=== PATIENT | female | born 1930 | race African-American/Black ===

== ENCOUNTER 2016-02-28 05:27 | Inpatient (IN) | payer MEDICARE ==
[~2016-02-28] VITALS: Ht 152.4 cm; Wt 50.0 kg
--- NOTE | 2016-02-28 06:16 | EKG ---
[facility] [address] [place] [address] Test Date: 2016-02-28 Test Time: 05:46:06 Pat Name: JOSE JONAS Department: Room: Gender: F Bed Laster: : 1930 Requested By: Gina GONZALEZ Order Number: [id number] Reading MD: Chris Bell Measurements Intervals [place] Rate: 90 P: 47 NV: 190 QRS: -16 QRSD: 76 T: 20 QT: 324 QTc: 400 Interpretive Statements SINUS RHYTHM VENTRICULAR PREMATURE COMPLEX(ES) LEFT ATRIAL ABNORMALITY LEFTWARD AXIS Electronically Signed On 02-29-2016 15:31:49 ELECTROMECHANICAL ASSEMBLY TECHNICIAN by Chris Bell
--- NOTE | 2016-02-28 06:35 | PHYS DOC ---
Adult General Chief Complaint Chief Complaint: WEAKNESS/GENERALIZED HPI HPI Patient is a 85 year old female who presents with complaint of right-sided weakness. Patient states that her symptoms started yesterday morning. Patient states that she is having difficulty lifting her right foot secondary to weakness. The patient is accompanied by her niece who states that the patient seems to been having trouble walking over the past 2 months but it seemed to have gotten much worse over the past 24 hours. The niece states that the patient was definitely struggling with walking yesterday and did require full assistance with ambulation. The patient denies any pain currently. Patient has not had any fevers. No reported falls or injuries. The patient states that she has a tremor in her right upper extremity which has been present for several months. Patient also Dr. Cunha for primary care. Due to significant decrease in functional status over the past 2 days, the niece brought the patient to the emergency department for evaluation. Review of Systems Review of Systems Constitutional: Denies fever or chills [] Eyes: Denies change in visual acuity, redness, or eye pain [] HENT: Denies nasal congestion or sore throat [] Respiratory: Denies cough or shortness of breath [] Cardiovascular: Denies chest pain or edema [] GI: Denies abdominal pain, nausea, vomiting, bloody stools or diarrhea [] : Denies dysuria or hematuria [] Musculoskeletal: Denies back pain or joint pain [] Integument: Denies rash or skin lesions [] Neurologic: Right lower show any weakness, right upper extremity tremors [] Endocrine: Denies polyuria or polydipsia [] Physical Exam Physical Exam Constitutional: Alert, afebrile, no acute distress. [] HENT: Normocephalic, atraumatic, bilateral external ears normal, oropharynx moist, no oral exudates, nose normal. [] Eyes: PERRLA, EOMI, conjunctiva normal, no discharge. [] Neck: Normal range of motion, no tenderness, supple, no stridor. [] Cardiovascular:Heart rate regular rhythm, no murmur [] Lungs & Thorax: Bilateral breath sounds clear to auscultation [] Abdomen: Bowel sounds normal, soft, no tenderness, no masses, no pulsatile masses. [] Skin: Warm, dry, no erythema, no rash. [] Back: No tenderness, no CVA tenderness. [] Extremities: No tenderness, no cyanosis, no clubbing, ROM intact, no edema. [] Neurologic: Alert and oriented X 3, 4 out of 5 strength in right lower extremity , 5 out of 5 strength in left lower extremity, resting tremor and right upper extremity, normal sensation, unable to ambulate for gait testing. [] Current Patient Data Vital Signs Vital Signs Date Time Temp Pulse Resp B/P Pulse Ox O2 Delivery O2 Flow Rate FiO2 02/28/16 05:32 98.3 95 16 164/79 99 Room Air 98.3 EKG EKG Interpreted by me: Heart rate 90, sinus rhythm, leftward axis, normal intervals , no acute ST/T-wave abnormalities present [] Radiology/Procedures Radiology/Procedures [facility] [address] [place] [address] IMAGING REPORT Signed PATIENT: JOSE JONAS ACCOUNT: [id number] : 1930 LOCATION: [address] [place] [address] AGE: 85 SEX: F EXAM STATUS: ADM IN ORD. PHYSICIAN: MARCUS RAHMAN MD REASON: right lower extremity weakness since yesterday PROCEDURE: HEAD WO CONTRAST EXAM: Head CT without contrast. HISTORY: Right lower extremity weakness. TECHNIQUE: Computed tomographic images of the head were obtained without contrast. COMPARISON: None. FINDINGS: There is no acute or subacute extra-axial or intraparenchymal hemorrhage. There is no mass effect or midline shift. There is no hydrocephalus. There are areas of decreased attenuation within the cerebral white matter, nonspecific and likely related to chronic small vessel disease. There is mild cerebral volume loss with compensatory enlargement of the ventricles. There are punctate basal ganglia calcifications. The visualized portions of the orbits, paranasal sinuses and mastoid air cells are unremarkable. No suspicious calvarial lesion is seen. IMPRESSION: 1. No acute intracranial finding. 2. Scattered areas of hypodensity within the cerebral white matter, a nonspecific finding likely due to chronic small vessel disease. 3. Note is made that MRI is more sensitive for acute infarction. PQRS Compliance Statement: One or more of the following individualized dose reduction techniques were utilized for this examination: 1. Automated exposure control 2. Adjustment of the mA and/or kV according to patient size 3. Use of iterative reconstruction technique DICTATED and SIGNED BY: PHUONG SCHAFFER MD DATE: 02/28/16 0702 CC: MARCUS RAHMAN MD; EDGAR CUNHA MD ~ [] Course & Med Decision Making Course & Med Decision Making Pertinent Labs and Imaging studies reviewed. (See chart for details) Patient's workup revealed decreased potassium which was replaced orally in the emergency department. Etiology of patient's right-sided weakness unclear at this time. The patient will be admitted for further workup as patient is currently requiring full assistance and is unable to live independently at this time. I spoke with Dr. Gil who accepted care patient in hospital. Dragon Disclaimer Dragon Disclaimer This electronic medical record was generated, in whole or in part, using a voice recognition dictation system. Departure Departure Impression: Primary Impression: Right sided weakness Additional Impressions: Unable to ambulate Hypokalemia Disposition: ADMITTED INPATIENT Admitting Physician: Maciej Gil Condition: STABLE Referrals: EDGAR CUNHA MD (PCP) Problem Qualifiers MARCUS RAHMAN MD Feb 28, 2016 06:35
--- NOTE | 2016-02-28 07:09 | RAD ---
EXAM: Head CT without contrast. HISTORY: Right lower extremity weakness. TECHNIQUE: Computed tomographic images of the head were obtained without contrast. COMPARISON: None. FINDINGS: There is no acute or subacute extra-axial or intraparenchymal hemorrhage. There is no mass effect or midline shift. There is no hydrocephalus. There are areas of decreased attenuation within the cerebral white matter, nonspecific and likely related to chronic small vessel disease. There is mild cerebral volume loss with compensatory enlargement of the ventricles. There are punctate basal ganglia calcifications. The visualized portions of the orbits, paranasal sinuses and mastoid air cells are unremarkable. No suspicious calvarial lesion is seen. IMPRESSION: 1. No acute intracranial finding. 2. Scattered areas of hypodensity within the cerebral white matter, a nonspecific finding likely due to chronic small vessel disease. 3. Note is made that MRI is more sensitive for acute infarction. PQRS Compliance Statement: One or more of the following individualized dose reduction techniques were utilized for this examination: 1. Automated exposure control 2. Adjustment of the mA and/or kV according to patient size 3. Use of iterative reconstruction technique
[2016-02-28 07:12] LABS: BASO % 1 % (0-3); EOS % 1 % (0-3); HEMATOCRIT 41.2 % (36.0-47.0); HEMOGLOBIN 13.5 g/dL (12.0-15.5); LYMPH # 0.6 x10^3/uL (1.0-4.8); LYMPH % 13 % (24-48); MEAN CORPUSCULAR HEMOGLOBIN 27 pg (25-35); MEAN CORPUSCULAR HGB CONC 33 g/dL (31-37); MEAN CORPUSCULAR VOLUME 83 fL (79-100); MONO % 8 % (0-9); NEUT % 78 % (31-73); PLATELET COUNT 281 x10^3/uL (140-400); RED BLOOD COUNT 4.95 x10^6/uL (3.50-5.40); RED CELL DISTRIBUTION WIDTH 15.2 % (11.5-14.5); WHITE BLOOD COUNT 4.8 x10^3/uL (4.0-11.0)
[2016-02-28 07:14] LABS: CALCIUM 8.9 mg/dL (8.5-10.1); CREATININE 0.7 mg/dL (0.6-1.0)
[2016-02-28] MEDS ORDERED: ONDANSETRON PF 4 MG/2 ML VIAL. IV PRN ×2 (07:15→09:00)
[2016-02-28] MEDS ORDERED: ACETAMINOPHEN 325 MG TABLET. PO PRN ×2 (07:15→09:00)
[2016-02-28 07:17] LABS: POTASSIUM 2.9 mmol/L (3.5-5.1)
[2016-02-28 07:18] LABS: ALBUMIN 3.4 g/dL (3.4-5.0); DIRECT BILIRUBIN 0.2 mg/dL (0.0-0.2); TOTAL PROTEIN 6.3 g/dL (6.4-8.2)
[2016-02-28] MEDS ORDERED: POTASSIUM CHLORIDE 20 MEQ TABLET.ER. PO ONE (07:30)
[2016-02-28 07:41] LABS: BILIRUBIN,URINE NEGATIVE (NEG); GLUCOSE,URINE NEGATIVE (NEG); NITRITE,URINE NEGATIVE (NEG); PH,URINE 7.5; PROTEIN,URINE NEGATIVE (NEG-TRACE)
[2016-02-28] MEDS: IV NORMAL SALINE 1000ML BAG 1,000 ML IV SCH ×4 (07:41→20:45)
[2016-02-28 07:49] LABS: BACTERIA,URINE FEW /HPF (0-FEW); RBC,URINE 0 /HPF (0-2); WBC,URINE OCC /HPF (0-4)
[2016-02-28] MEDS ORDERED: ACETAMINOPHEN 650 MG SUPP.RECT. PR PRN (09:00)
[2016-02-28] MEDS ORDERED: 0.9 % SODIUM CHLORIDE 10 ML DISP.SYRIN. IV PRN (09:00)
[2016-02-28] MEDS ORDERED: LABETALOL 20 MG/4 ML DISP.SYRIN. IV PRN (09:00)
[2016-02-28 09:03] VITALS: BP 142/76
[2016-02-28 09:04] VITALS: BP 142/76
--- NOTE | 2016-02-28 09:51 | RAD ---
EXAM: Carotid Doppler sonogram. HISTORY: Stroke. TECHNIQUE: Doppler sonographic evaluation of the neck was performed and static images are submitted for review. FINDINGS: There is mild atherosclerotic plaque within the carotid bifurcations. The peak systolic velocity within the right common carotid artery is 98 cm/sec. The peak systolic velocities within the right proximal, mid and distal internal carotid artery are 77 cm/sec, 52 cm/sec, and 59 cm/sec, respectively. The peak systolic velocity within the left common carotid artery is 101 cm/sec. The peak systolic velocities within the left proximal, mid and distal internal carotid artery are 73 cm/sec, 81 cm/sec, and 65 cm/sec, respectively. There is normal antegrade flow within both vertebral arteries. IMPRESSION: No evidence of hemodynamically significant stenosis within the carotid or vertebral arteries. PQRS Statement: NASCET criteria were utilized for this exam.
[2016-02-28] MEDS: CYANOCOBALAMIN (VITAMIN B-12) 1,000 MCG/ML VIAL IM SCH (10:36)
[2016-02-28] MEDS: ASPIRIN ENTERIC COATED 325 MG TABLET.DR. PO SCH (10:36)
[2016-02-28] MEDS: ENOXAPARIN 40 MG/0.4 ML DISP.SYRIN. SQ SCH (10:36)
--- NOTE | 2016-02-28 11:37 | PDOC2 ---
NEUROLOGY CONSULT Date of Admission Date of Admission DATE: 02/28/16 TIME: 11:28 Reason for Consult Reason for Consult: Right-sided weakness Referring Physician Referring Physician: Dr. Gil PCP: Dr. Cunha Source Source: Caregiver, Chart review, Patient History of Present Illness History of Present Illness The patient is an 85-year-old right-handed female with the chief complaint of right-sided weakness. I saw her for the first and only time in my office on for dementia and hallucinations. I noted some mild tremor and entertained the possibility of Lewy body dementia. Laboratory studies were positive for a B12 level of 236 with normal folate, thyroid studies, sedimentation rate. The patient refused to have imaging of the brain. I do not think that she would benefit from Parkinson's medications but did prescribe donepezil. The patient was supposed to return for follow-up 3 days ago but did not do so. Apparently in the meantime she did develop some right-sided weakness, which grew worse in the past 48 hours. There is no prior history of stroke, seizure, or head injury. Past Medical History Cardiovascular: HTN CENTRAL NERVOUS SYSTEM: Dementia Past Surgical History Past Surgical History: No pertinent history Family History Family History: CVA Social History Social History , lives in a nursing home home, no alcohol or tobacco Current Medications Current Medications Current Medications Ondansetron HCl 4 mg 4 mg PRN Q8HRS PRN IV NAUSEA/VOMITING; Start 02/28/16 at 07 :15; Stop 02/29/16 at 07:14 Sodium Chloride (Iv Sodium Chloride 0.9% 1000ml Bag) 1,000 ml @ 100 mls/hr Q10H IV Last administered on 02/28/16 07:41; Start 02/28/16 at 07:08; Stop 02/28 at 07:07 Acetaminophen (Tylenol) 650 mg PRN Q4HRS PRN PO FEVER; Start 02/28/16 at 07:15; Stop 02/29/16 at 07:14 Potassium Chloride (Klor-Con) 40 meq 1X ONCE PO Last administered on 02/28/16 07:40; Start 02/28/16 at 07:30; Stop 02/28/16 at 07:37; Status DC Sodium Chloride 3 ml 3 ml QSHIFT PRN IV AFTER MEDS AND BLOOD DRAWS; Start at 09:00 Sodium Chloride (Iv Sodium Chloride 0.9% 1000ml Bag) 1,000 ml @ 100 mls/hr Q10H IV Last administered on 02/28/16 10:36; Start 02/28/16 at 08:57 Aspirin (Ecotrin) 325 mg DAILYWBKFT PO Last administered on 02/28/16 10:36; Start 02/28/16 at 10:00 Simvastatin (Zocor) 40 mg QHS PO ; Start 02/28/16 at 21:00 Labetalol HCl (Normodyne) 10 mg PRN Q10MIN PRN IV HYPERTENSION, SEE COMMENTS; Start 02/28/16 at 09:00 Acetaminophen (Tylenol) 650 mg PRN Q6HRS PRN PO FEVER; Start 02/28/16 at 09:00 Acetaminophen (Tylenol) 650 mg PRN Q6HRS PRN NV FEVER; Start 02/28/16 at 09:00 Ondansetron HCl (Zofran) 4 mg PRN Q6HRS PRN IV NAUSEA/VOMITING; Start 02/28/16 at 09:00 Enoxaparin Sodium (Lovenox 40mg Syringe) 40 mg Q24H SQ Last administered on 02/27 10:36; Start 02/28/16 at 10:00 Cyanocobalamin (Vitamin B-12) 1,000 mcg DAILY IM Last administered on 02/28/16 10:36; Start 02/28/16 at 10:00; Stop 03/01/16 at 09:59 Allergies Allergies: Coded Allergies: No Known Drug Allergies (Unverified , 02/28/16) ROS Review of System Negative for fevers, chills, weight loss, shortness of breath, chest pain, indigestion, hematochezia, melena, dysuria. Full 14-point review systems is negative. Physical Exam Physical Examination Vital signs: see above. General appearance is normal and in no acute distress. HEENT: Normocephalic and nontraumatic. Eyes, nose, ears, and throat are unremarkable. Neck is supple. No lymphadenopathy. No bruits are heard over the carotid artery. No crepitus. NEUROLOGICAL EXAMINATION: Mental Status Examination: Alert. Oriented only to person. Answers questions and follows commends. Pupils are equal round and reactive to light and accommodation. Funduscopic exam: No papilledema. Extraocular movements are intact. Visual field exam shows no defect on the direct confrontation. No motor or sensory deficits on the facial exam. Uvula in the midline and the soft palate elevated symmetrically. No deviation of the tongue to any direction. Gross hearing is normal. Shoulder shrug normal. Muscle tone is normal. Muscle strength is 4/5. Deep tendon reflexes are 1+ all around. Plantar reflex is with flexion response bilaterally. [id number] test performance is accurate. Alternative movements are accurate. Gait not tested. Sensory exam shows no deficits. No cerebellar signs are elicited. Vitals VITALS Vital Signs Date Time Temp Pulse Resp B/P Pulse Ox O2 Delivery O2 Flow Rate FiO2 02/28/16 10:50 Room Air 02/28/16 09:04 97.9 89 18 142/76 99 97.9 Labs Labs Laboratory Tests Test 02/28/16 06:39 02/28/16 06:48 White Blood Count 4.8x10^3/uL (4.0-11.0) Red Blood Count 4.95x10^6/uL (3.50-5.40) Hemoglobin 13.5g/dL (12.0-15.5) Hematocrit 41.2% (36.0-47.0) Mean Corpuscular Volume 83fL (79-100) Mean Corpuscular Hemoglobin 27pg (25-35) Mean Corpuscular Hemoglobin Concent 33g/dL (31-37) Red Cell Distribution Width 15.2% (11.5-14.5) Platelet Count 281x10^3/uL (140-400) Neutrophils (%) (Auto) 78% (31-73) Lymphocytes (%) (Auto) 13% (24-48) Monocytes (%) (Auto) 8% (0-9) Eosinophils (%) (Auto) 1% (0-3) Basophils (%) (Auto) 1% (0-3) Neutrophils # (Auto) 3.8x10^3uL (1.8-7.7) Lymphocytes # (Auto) 0.6x10^3/uL (1.0-4.8) Monocytes # (Auto) 0.4x10^3/uL (0.0-1.1) Eosinophils # (Auto) 0.0x10^3/uL (0.0-0.7) Basophils # (Auto) 0.0x10^3/uL (0.0-0.2) Sodium Level 145mmol/L (136-145) Potassium Level 2.9mmol/L (3.5-5.1) Chloride Level 105mmol/L (98-107) Carbon Dioxide Level 30mmol/L (21-32) Anion Gap 10 (6-14) Blood Urea Nitrogen 9mg/dL (7-20) Creatinine 0.7mg/dL (0.6-1.0) Estimated GFR (Cockcroft-Gault) 96.0 Glucose Level 89mg/dL (70-99) Calcium Level 8.9mg/dL (8.5-10.1) Total Bilirubin 1.0mg/dL (0.2-1.0) Direct Bilirubin 0.2mg/dL (0.0-0.2) Aspartate Amino Transf (AST/SGOT) 23U/L (15-37) Alanine Aminotransferase (ALT/SGPT) 17U/L (14-59) Alkaline Phosphatase 49U/L (46-116) Total Protein 6.3g/dL (6.4-8.2) Albumin 3.4g/dL (3.4-5.0) Urine Collection Type U cath Urine Color Yellow Urine Clarity Cloudy Urine pH 7.5 Urine Specific [place] 1.015 Urine Protein Negativemg/dL (NEG-TRACE) Urine Glucose (UA) Negativemg/dL (NEG) Urine Ketones (Stick) 15mg/dL (NEG) Urine Blood Negative (NEG) Urine Nitrite Negative (NEG) Urine Bilirubin Negative (NEG) Urine Urobilinogen Dipstick 4.0mg/dL (0.2 mg/dL) Urine Leukocyte Esterase Negative (NEG) Urine RBC 0/HPF (0-2) Urine WBC Occ/HPF (0-4) Urine Amorphous Sediment Present/HPF Urine Bacteria Few/HPF (0-FEW) Laboratory Tests Test 02/28/16 06:39 02/28/16 06:48 White Blood Count 4.8x10^3/uL (4.0-11.0) Red Blood Count 4.95x10^6/uL (3.50-5.40) Hemoglobin 13.5g/dL (12.0-15.5) Hematocrit 41.2% (36.0-47.0) Mean Corpuscular Volume 83fL (79-100) Mean Corpuscular Hemoglobin 27pg (25-35) Mean Corpuscular Hemoglobin Concent 33g/dL (31-37) Red Cell Distribution Width 15.2% (11.5-14.5) Platelet Count 281x10^3/uL (140-400) Neutrophils (%) (Auto) 78% (31-73) Lymphocytes (%) (Auto) 13% (24-48) Monocytes (%) (Auto) 8% (0-9) Eosinophils (%) (Auto) 1% (0-3) Basophils (%) (Auto) 1% (0-3) Neutrophils # (Auto) 3.8x10^3uL (1.8-7.7) Lymphocytes # (Auto) 0.6x10^3/uL (1.0-4.8) Monocytes # (Auto) 0.4x10^3/uL (0.0-1.1) Eosinophils # (Auto) 0.0x10^3/uL (0.0-0.7) Basophils # (Auto) 0.0x10^3/uL (0.0-0.2) Sodium Level 145mmol/L (136-145) Potassium Level 2.9mmol/L (3.5-5.1) Chloride Level 105mmol/L (98-107) Carbon Dioxide Level 30mmol/L (21-32) Anion Gap 10 (6-14) Blood Urea Nitrogen 9mg/dL (7-20) Creatinine 0.7mg/dL (0.6-1.0) Estimated GFR (Cockcroft-Gault) 96.0 Glucose Level 89mg/dL (70-99) Calcium Level 8.9mg/dL (8.5-10.1) Total Bilirubin 1.0mg/dL (0.2-1.0) Direct Bilirubin 0.2mg/dL (0.0-0.2) Aspartate Amino Transf (AST/SGOT) 23U/L (15-37) Alanine Aminotransferase (ALT/SGPT) 17U/L (14-59) Alkaline Phosphatase 49U/L (46-116) Total Protein 6.3g/dL (6.4-8.2) Albumin 3.4g/dL (3.4-5.0) Urine Collection Type U cath Urine Color Yellow Urine Clarity Cloudy Urine pH 7.5 Urine Specific [place] 1.015 Urine Protein Negativemg/dL (NEG-TRACE) Urine Glucose (UA) Negativemg/dL (NEG) Urine Ketones (Stick) 15mg/dL (NEG) Urine Blood Negative (NEG) Urine Nitrite Negative (NEG) Urine Bilirubin Negative (NEG) Urine Urobilinogen Dipstick 4.0mg/dL (0.2 mg/dL) Urine Leukocyte Esterase Negative (NEG) Urine RBC 0/HPF (0-2) Urine WBC Occ/HPF (0-4) Urine Amorphous Sediment Present/HPF Urine Bacteria Few/HPF (0-FEW) Images Images CT head: 1. No acute intracranial finding. 2. Scattered areas of hypodensity within the cerebral white matter, a nonspecific finding likely due to chronic small vessel disease. 3. Note is made that MRI is more sensitive for acute infarction. Carotids: negative Assessment/Plan Assessment/Plan Impression: Dementia, at my office I thought there could be Lewy body dementia, but I don't elicit Parkinsonian signs on today's examination. Possible stroke symptoms, not apparent on bedside examination. B12 deficiency Recommendations: Stroke workup, MRI and echocardiogram, carotid studies already done Rehabilitation modalities Aspirin Statin B-12 injections Resume donepezil I discussed my findings with the patient's niece. Thank you for letting me help with the patient's care. DEMETRIA RENDON MD Feb 28, 2016 11:37
[2016-02-28 11:55] VITALS: BP 134/80
[2016-02-28] MEDS: DONEPEZIL HCL 10 MG TABLET. PO SCH (12:21)
--- NOTE | 2016-02-28 14:34 | PDOC1 ---
History and Physical Date of Admission Date of Admission DATE: 02/28/16 TIME: 14:33 Identification/Chief Complaint Chief Complaint weakness Source Source: Caregiver, Chart review, Patient History of Present Illness History of Present Illness Ms. Puentes, is a 85 year old female admitted w. new right-sided weakness. 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 and new difficulty lifting her right foot secondary to weakness. RIght hand is markedly weak, she has just gotten back in bed, and didn't want to get MRI or PT due to her being tired. per her neice, Sx have worsened over 24 hours before presentation, and are now alittle improved Past Medical History Cardiovascular: HTN CENTRAL NERVOUS SYSTEM: Dementia Renal/: No pertinent hx Endocrine: No pertinent hx Past Surgical History Past Surgical History: No pertinent history Social History Smoke: No ALCOHOL: none Current Problem List Problem List Problems Medical Problems: (1) Hypokalemia Status: Acute (2) Right sided weakness Status: Acute (3) Unable to ambulate Status: Acute Problems: Current Medications Current Medications Current Medications Ondansetron HCl 4 mg 4 mg PRN Q8HRS PRN IV NAUSEA/VOMITING; Start 02/28/16 at 07 :15; Stop 02/29/16 at 07:14 Sodium Chloride (Iv Sodium Chloride 0.9% 1000ml Bag) 1,000 ml @ 100 mls/hr Q10H IV Last administered on 02/28/16 07:41; Start 02/28/16 at 07:08; Stop 02/28 at 07:07 Acetaminophen (Tylenol) 650 mg PRN Q4HRS PRN PO FEVER; Start 02/28/16 at 07:15; Stop 02/29/16 at 07:14 Potassium Chloride (Klor-Con) 40 meq 1X ONCE PO Last administered on 02/28/16 07:40; Start 02/28/16 at 07:30; Stop 02/28/16 at 07:37; Status DC Sodium Chloride 3 ml 3 ml QSHIFT PRN IV AFTER MEDS AND BLOOD DRAWS; Start at 09:00 Sodium Chloride (Iv Sodium Chloride 0.9% 1000ml Bag) 1,000 ml @ 100 mls/hr Q10H IV Last administered on 02/28/16 10:36; Start 02/28/16 at 08:57 Aspirin (Ecotrin) 325 mg DAILYWBKFT PO Last administered on 02/28/16 10:36; Start 02/28/16 at 10:00 Simvastatin (Zocor) 40 mg QHS PO ; Start 02/28/16 at 21:00 Labetalol HCl (Normodyne) 10 mg PRN Q10MIN PRN IV HYPERTENSION, SEE COMMENTS; Start 02/28/16 at 09:00 Acetaminophen (Tylenol) 650 mg PRN Q6HRS PRN PO FEVER; Start 02/28/16 at 09:00 Acetaminophen (Tylenol) [address] FEVER; Start 02/28/16 at 09:00 Ondansetron HCl (Zofran) 4 mg PRN Q6HRS PRN IV NAUSEA/VOMITING; Start 02/28/16 at 09:00 Enoxaparin Sodium (Lovenox 40mg Syringe) 40 mg Q24H SQ Last administered on 02/27 10:36; Start 02/28/16 at 10:00 Cyanocobalamin (Vitamin B-12) 1,000 mcg DAILY IM Last administered on 02/28/16 10:36; Start 02/28/16 at 10:00; Stop 03/01/16 at 09:59 Donepezil HCl (Aricept) 10 mg DAILY PO Last administered on 02/28/16 12:21; Start 02/28/16 at 12:00 Allergies Allergies: Coded Allergies: No Known Drug Allergies (Unverified , 02/28/16) ROS General: No: Appetite, Chills, Fatigue, Malaise, Night Sweats, Other PSYCHOLOGICAL ROS: YES: Disorientation, No: Anxiety, Behavioral Disorder, Concentration difficultie, Decreased libido , Depression, Hallucinations, Hostility, Irritablity, Memory difficulties, Mood Swings, Obsessive thoughts, Other, Physical abuse, Sexual abuse, Sleep disturbances, Suicidal ideation Eyes: No Blurry vision, No Decreased vision, No Double vision, No Dry eyes, No Excessive tearing, No Eye Pain, No Itchy Eyes, No Loss of vision, No Other, No Photophobia, No Scotomata, No Uses contacts, No Uses glasses HEENT: No: Epistaxis, Heacaches, Hearing change, Nasal congestion, Nasal discharge, Oral lesions, Other, Sinus pain, Sneezing, Snoring, Sore Throat, Tinnitus, Vertigo, Visual Changes, Vocal changes Cardiovascular: No Chest Pain, No Edema, No Lt Headedness, No Orthopnea, No Other, No Palpitations, No Paroxysmal Noc. Dyspnea Gastrointestinal: No Abdominal Pain, No Constipation, No Diarrhea, No Hematochezia, No Melena, No Nausea, No Other, No Vomiting Genitourinary: No , No , No , No , No , No , No , No Discharge, No Dysuria, No Flank Pain, No Frequency, No Hematuria, No Incontinence, No Other, No Pain, No Retention, No Urgency Musculoskeletal: Yes Joint Pain, Yes Joint Stiffness, No Gait Disturbance, No Joint Swelling, No Muscle Pain, No Muscular Weakness , No Other, No Pain In:, No Swelling In: Neurological: Yes Impaired Coord/balance, Yes Weakness, No Behavorial Changes, No Bowel/Bladder ControlChng, No Confusion, No Dizziness, No Gait Disturbance, No Headaches, No Memory Loss, No Numbness/ Tingling, No Other, No Seizures, No Speech Problems, No Tremors, No Visual Changes Skin: No Acne, No Dry Skin, No Eczema, No Hair Changes, No Lumps, No Mole Changes, No Mottling, No Nail Changes, No Other, No Pruritus, No Rash, No Skin Lesion Changes Physical Exam General: Alert, Cooperative, No acute distress, Other (poorly oriented) HEENT: PERRLA Lungs: Clear to auscultation, Normal air movement Heart: RRR, no murmurs Abdomen: Normal bowel sounds, Soft Rectal Exam: not examined Extremities: No cyanosis, No edema, Normal pulses Neuro: Normal tone, Sensation intact, Cranial nerves 3-12 NL, 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, 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 coordination finger to nose or alternating hand movement.) Psych/Mental Status: Mood NL Vitals Vitals Vital Signs Date Time Temp Pulse Resp B/P Pulse Ox O2 Delivery O2 Flow Rate FiO2 02/28/16 11:55 98.1 84 18 134/80 98 98.1 02/28/16 10:50 Room Air Labs Labs Laboratory Tests Test 02/28/16 06:39 02/28/16 06:48 White Blood Count 4.8x10^3/uL (4.0-11.0) Red Blood Count 4.95x10^6/uL (3.50-5.40) Hemoglobin 13.5g/dL (12.0-15.5) Hematocrit 41.2% (36.0-47.0) Mean Corpuscular Volume 83fL (79-100) Mean Corpuscular Hemoglobin 27pg (25-35) Mean Corpuscular Hemoglobin Concent 33g/dL (31-37) Red Cell Distribution Width 15.2% (11.5-14.5) Platelet Count 281x10^3/uL (140-400) Neutrophils (%) (Auto) 78% (31-73) Lymphocytes (%) (Auto) 13% (24-48) Monocytes (%) (Auto) 8% (0-9) Eosinophils (%) (Auto) 1% (0-3) Basophils (%) (Auto) 1% (0-3) Neutrophils # (Auto) 3.8x10^3uL (1.8-7.7) Lymphocytes # (Auto) 0.6x10^3/uL (1.0-4.8) Monocytes # (Auto) 0.4x10^3/uL (0.0-1.1) Eosinophils # (Auto) 0.0x10^3/uL (0.0-0.7) Basophils # (Auto) 0.0x10^3/uL (0.0-0.2) Sodium Level 145mmol/L (136-145) Potassium Level 2.9mmol/L (3.5-5.1) Chloride Level 105mmol/L (98-107) Carbon Dioxide Level 30mmol/L (21-32) Anion Gap 10 (6-14) Blood Urea Nitrogen 9mg/dL (7-20) Creatinine 0.7mg/dL (0.6-1.0) Estimated GFR (Cockcroft-Gault) 96.0 Glucose Level 89mg/dL (70-99) Calcium Level 8.9mg/dL (8.5-10.1) Total Bilirubin 1.0mg/dL (0.2-1.0) Direct Bilirubin 0.2mg/dL (0.0-0.2) Aspartate Amino Transf (AST/SGOT) 23U/L (15-37) Alanine Aminotransferase (ALT/SGPT) 17U/L (14-59) Alkaline Phosphatase 49U/L (46-116) Total Protein 6.3g/dL (6.4-8.2) Albumin 3.4g/dL (3.4-5.0) Urine Collection Type U cath Urine Color Yellow Urine Clarity Cloudy Urine pH 7.5 Urine Specific [place] 1.015 Urine Protein Negativemg/dL (NEG-TRACE) Urine Glucose (UA) Negativemg/dL (NEG) Urine Ketones (Stick) 15mg/dL (NEG) Urine Blood Negative (NEG) Urine Nitrite Negative (NEG) Urine Bilirubin Negative (NEG) Urine Urobilinogen Dipstick 4.0mg/dL (0.2 mg/dL) Urine Leukocyte Esterase Negative (NEG) Urine RBC 0/HPF (0-2) Urine WBC Occ/HPF (0-4) Urine Amorphous Sediment Present/HPF Urine Bacteria Few/HPF (0-FEW) Laboratory Tests Test 02/28/16 06:39 02/28/16 06:48 White Blood Count 4.8x10^3/uL (4.0-11.0) Red Blood Count 4.95x10^6/uL (3.50-5.40) Hemoglobin 13.5g/dL (12.0-15.5) Hematocrit 41.2% (36.0-47.0) Mean Corpuscular Volume 83fL (79-100) Mean Corpuscular Hemoglobin 27pg (25-35) Mean Corpuscular Hemoglobin Concent 33g/dL (31-37) Red Cell Distribution Width 15.2% (11.5-14.5) Platelet Count 281x10^3/uL (140-400) Neutrophils (%) (Auto) 78% (31-73) Lymphocytes (%) (Auto) 13% (24-48) Monocytes (%) (Auto) 8% (0-9) Eosinophils (%) (Auto) 1% (0-3) Basophils (%) (Auto) 1% (0-3) Neutrophils # (Auto) 3.8x10^3uL (1.8-7.7) Lymphocytes # (Auto) 0.6x10^3/uL (1.0-4.8) Monocytes # (Auto) 0.4x10^3/uL (0.0-1.1) Eosinophils # (Auto) 0.0x10^3/uL (0.0-0.7) Basophils # (Auto) 0.0x10^3/uL (0.0-0.2) Sodium Level 145mmol/L (136-145) Potassium Level 2.9mmol/L (3.5-5.1) Chloride Level 105mmol/L (98-107) Carbon Dioxide Level 30mmol/L (21-32) Anion Gap 10 (6-14) Blood Urea Nitrogen 9mg/dL (7-20) Creatinine 0.7mg/dL (0.6-1.0) Estimated GFR (Cockcroft-Gault) 96.0 Glucose Level 89mg/dL (70-99) Calcium Level 8.9mg/dL (8.5-10.1) Total Bilirubin 1.0mg/dL (0.2-1.0) Direct Bilirubin 0.2mg/dL (0.0-0.2) Aspartate Amino Transf (AST/SGOT) 23U/L (15-37) Alanine Aminotransferase (ALT/SGPT) 17U/L (14-59) Alkaline Phosphatase 49U/L (46-116) Total Protein 6.3g/dL (6.4-8.2) Albumin 3.4g/dL (3.4-5.0) Urine Collection Type U cath Urine Color Yellow Urine Clarity Cloudy Urine pH 7.5 Urine Specific [place] 1.015 Urine Protein Negativemg/dL (NEG-TRACE) Urine Glucose (UA) Negativemg/dL (NEG) Urine Ketones (Stick) 15mg/dL (NEG) Urine Blood Negative (NEG) Urine Nitrite Negative (NEG) Urine Bilirubin Negative (NEG) Urine Urobilinogen Dipstick 4.0mg/dL (0.2 mg/dL) Urine Leukocyte Esterase Negative (NEG) Urine RBC 0/HPF (0-2) Urine WBC Occ/HPF (0-4) Urine Amorphous Sediment Present/HPF Urine Bacteria Few/HPF (0-FEW) VTE Prophylaxis Ordered VTE Prophylaxis Devices: No VTE Pharmacological Prophylaxi: Yes Assessment/Plan Assessment/Plan right-sided weakness. essential tremor TIA seems likely dementia, possible Lewy-body discussed by Dr. Alaniz B12 deficiency TREY VERAS MD Feb 28, 2016 14:34
--- NOTE | 2016-02-28 16:59 | CARD ---
APPROVED REPORT EXAM: Two-dimensional and M-mode echocardiogram with Doppler and color Doppler. Other Information Quality : GoodHR: 82bpm Rhythm : NSR INDICATION CVA 2D DIMENSIONS RVDd1.7 (2.9-3.5cm)Left Atrium(2D)1.6 (1.6-4.0cm) IVSd0.7 (0.7-1.1cm)Aortic Root(2D)2.6 (2.0-3.7cm) LVDd4.1 (3.9-5.9cm)LVOT Diameter2.1 (1.8-2.4cm) PWd0.8 (0.7-1.1cm)LVDs2.5 (2.5-4.0cm) FS (%) 38.0 %SV50.2 ml LVEF(%)68.6 (>50%) Aortic Valve AoV Peak Abiel.107.7cm/sAoV VTI15.8cm AO Peak GR.4.6mmHgLVOT VTI 15.48cm AO Mean GR.2mmHg Mitral Valve MV E Vuhjwahb42.6cm/sMV E Peak Gr.5mmHg MV DECEL [id number] A Sygrplen61.7cm/s MV E Mean Gr.2mmHgE/A Ratio0.9 MV A [id number] TDI Lateral E' P. V6.89cm/sMedial E' P. V6.37cm/s E/Lateral E'10.7E/Medial E'11.6 Pulmonary Valve PV Peak Tczwcsjt48.0cm/s Pulmonary Vein S1 Velocity6.0cm/sS2 Lqmbembc88.78cm/s D2 Xetfbdnc02.8cm/sPVa [id number] LEFT VENTRICLE The left ventricle is normal size. There is normal left ventricular wall thickness. The left ventricu lar systolic function is normal. The Ejection Fraction is 60-65%. There is normal LV segmental wall m otion. Transmitral Doppler flow pattern is Grade I-abnormal relaxation pattern. RIGHT VENTRICLE The right ventricle is normal size. There is normal right ventricular wall thickness. The right ventr icular systolic function is normal. ATRIA The left atrium size is normal. The right atrium size is normal. The interatrial septum is intact wit h no evidence for an atrial septal defect or patent foramen ovale as noted on 2-D or Doppler imaging. AORTIC VALVE The aortic valve is calcified but opens well. The aortic valve is trileaflet. Doppler and Color Flow revealed no significant aortic regurgitation. There is no significant aortic valvular stenosis. MITRAL VALVE Mitral annular calcification is mild. There is no evidence of mitral valve prolapse. There is no mitr al valve stenosis. Doppler and Color Flow revealed mild mitral regurgitation. TRICUSPID VALVE The tricuspid valve is normal in structure and function. Doppler and Color Flow revealed no tricuspid valve regurgitation noted. There is no tricuspid valve stenosis. PULMONIC VALVE The pulmonary valve is normal in structure and function. Doppler and Color Flow revealed no pulmonic valvular regurgitation. There is no pulmonic valvular stenosis. GREAT VESSELS The aortic root is normal in size. The ascending aorta is normal in size. The pulmonary artery is nor mal. The IVC is normal in size and collapses >50% with inspiration. PERICARDIAL EFFUSION There is no evidence of significant pericardial effusion. Critical Notification Critical Value: No <Conclusion> The left ventricular systolic function is normal. The Ejection Fraction is 60-65%. There is normal LV segmental wall motion. Transmitral Doppler flow pattern is Grade I-abnormal relaxation pattern. Doppler and Color Flow revealed mild mitral regurgitation. There is no evidence of significant pericardial effusion.
[2016-02-28 19:00] VITALS: BP 139/82
[2016-02-28] MEDS: SIMVASTATIN 40 MG TABLET. PO SCH (20:40)
[2016-02-28 23:00] VITALS: BP 150/86
[2016-02-29 03:00] VITALS: BP 141/81
[2016-02-29] MEDS: IV NORMAL SALINE 1000ML BAG 1,000 ML IV SCH ×3 (03:26→14:57)
[2016-02-29 05:45] LABS: CHOLESTEROL/HDL RATIO 3.3
[2016-02-29 07:12] VITALS: BP 159/72
[2016-02-29] MEDS ORDERED: GADOBUTROL 7.5 MMOL/7.5 ML VIAL IV ONE (08:45)
[2016-02-29] MEDS: CYANOCOBALAMIN (VITAMIN B-12) 1,000 MCG/ML VIAL IM SCH (09:08)
[2016-02-29] MEDS: ASPIRIN ENTERIC COATED 325 MG TABLET.DR. PO SCH (09:08)
[2016-02-29] MEDS: DONEPEZIL HCL 10 MG TABLET. PO SCH (09:08)
[2016-02-29] MEDS: ENOXAPARIN 40 MG/0.4 ML DISP.SYRIN. SQ SCH (09:09)
--- NOTE | 2016-02-29 09:52 | RAD ---
PROCEDURE MRI brain without and with contrast. HISTORY Altered mental status, confusion, weakness TECHNIQUE Sagittal and axial T1, axial T2, axial diffusion, axial FLAIR, coronal T2, axial gradient echo T2, post-contrast sagittal, axial, coronal T1 weighted images were acquired of the brain. Contrast: 5 cc Gadavist. COMPARISON None other than CT head exam February 28, 2016 FINDINGS There is a fairly homogeneously enhancing mass of the right temporal region laterally, up to approximately 2.5 centimeters cc by 2.2 centimeters transverse by 3.1 centimeters AP. This is apparently extra-axial in location with extent to the dural surface. There is adjacent mild dural thickening and enhancement. There is no significant edema/gliosis of the adjacent right temporal parenchyma. There is no restricted diffusion suggestive of recent infarct or cytotoxic edema. Ventricular size is within normal limits. There is mild generalized supratentorial involutional change. There is very mild T2 and FLAIR hyperintense signal abnormality of the supratentorial periventricular white matter bilaterally. There is preservation of the major arterial intracranial flow voids at the skull base. Mastoid air cells are aerated. There is patchy minimal ethmoid air cell mucosal thickening. There is mild mucosal thickening near floors of the maxillary sinuses. Cerebellar tonsils are normal in location. There is preservation of marrow signal of the clivus. There is no significant abnormality of the pineal gland or pituitary gland. There is degenerative disc disease of visualized superior cervical spine. IMPRESSION 1. There is no evidence of recent infarct. 2. There is a fairly large enhancing mass in the right lateral temporal region, apparently extra-axial in location. Findings are most likely due to a meningioma unless clinical suspicion for dural-based metastasis. Close interval followup imaging may be beneficial. Minimal T2 and FLAIR hyperintense signal abnormality of the supratentorial white matter is probably due to chronic microvascular ischemic disease in patient this age. Electronically signed by: Danyel Blair MD (Feb 29, 2016 09:50:34)
[2016-02-29 11:02] VITALS: BP 131/70
--- NOTE | 2016-02-29 14:46 | PDOC ---
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 Most likely this gait disorder represents her dementia. I do not believe the temporal meningioma is at fault. B12 deficiency Plan I discussed my findings with the patient and her niece. I suggest transfer to snf Continue B-12 injections monthly Continue donepezil We discussed empiric trial of Parkinsonian medications but decided the risks outweigh the benefits I do not believe that she needs MRI studies of the cervical or lumbar spine Follow-up brain MRI in 3 months. Subjective No complaints Objective Vital Signs Date Time Temp Pulse Resp B/P Pulse Ox O2 Delivery O2 Flow Rate FiO2 02/29/16 11:02 98.8 89 16 131/70 98 Room Air 98.8 Intake and Output 02/29/16 07:00 Intake Total 590 ml Output Total 250 ml Balance 340 ml Intake Oral 590 ml Output Urine Total 250 ml # Voids 6 PHYSICAL EXAM Alert. Oriented only to person. PERRL. EOMI. CN: no focal findings. Muscle tone: normal. Muscle strength: 4/5 DTR: 1+ Plantar reflex: flexor Gait: not examined in bed. Sensory exam: no abnormal findings. No cerebellar signs elicited. She has a coarse resting and postural tremor Review of Relevant I have reviewed the following items nataliya (where applicable) has been applied. Labs Laboratory Tests Test 02/28/16 06:39 02/28/16 06:48 02/29/16 04:45 White Blood Count 4.8x10^3/uL (4.0-11.0) Red Blood Count 4.95x10^6/uL (3.50-5.40) Hemoglobin 13.5g/dL (12.0-15.5) Hematocrit 41.2% (36.0-47.0) Mean Corpuscular Volume 83fL (79-100) Mean Corpuscular Hemoglobin 27pg (25-35) Mean Corpuscular Hemoglobin Concent 33g/dL (31-37) Red Cell Distribution Width 15.2% (11.5-14.5) Platelet Count 281x10^3/uL (140-400) Neutrophils (%) (Auto) 78% (31-73) Lymphocytes (%) (Auto) 13% (24-48) Monocytes (%) (Auto) 8% (0-9) Eosinophils (%) (Auto) 1% (0-3) Basophils (%) (Auto) 1% (0-3) Neutrophils # (Auto) 3.8x10^3uL (1.8-7.7) Lymphocytes # (Auto) 0.6x10^3/uL (1.0-4.8) Monocytes # (Auto) 0.4x10^3/uL (0.0-1.1) Eosinophils # (Auto) 0.0x10^3/uL (0.0-0.7) Basophils # (Auto) 0.0x10^3/uL (0.0-0.2) Sodium Level 145mmol/L (136-145) Potassium Level 2.9mmol/L (3.5-5.1) Chloride Level 105mmol/L (98-107) Carbon Dioxide Level 30mmol/L (21-32) Anion Gap 10 (6-14) Blood Urea Nitrogen 9mg/dL (7-20) Creatinine 0.7mg/dL (0.6-1.0) Estimated GFR (Cockcroft-Gault) 96.0 Glucose Level 89mg/dL (70-99) Calcium Level 8.9mg/dL (8.5-10.1) Total Bilirubin 1.0mg/dL (0.2-1.0) Direct Bilirubin 0.2mg/dL (0.0-0.2) Aspartate Amino Transf (AST/SGOT) 23U/L (15-37) Alanine Aminotransferase (ALT/SGPT) 17U/L (14-59) Alkaline Phosphatase 49U/L (46-116) Total Protein 6.3g/dL (6.4-8.2) Albumin 3.4g/dL (3.4-5.0) Urine Collection Type U cath Urine Color Yellow Urine Clarity Cloudy Urine pH 7.5 Urine Specific [place] 1.015 Urine Protein Negativemg/dL (NEG-TRACE) Urine Glucose (UA) Negativemg/dL (NEG) Urine Ketones (Stick) 15mg/dL (NEG) Urine Blood Negative (NEG) Urine Nitrite Negative (NEG) Urine Bilirubin Negative (NEG) Urine Urobilinogen Dipstick 4.0mg/dL (0.2 mg/dL) Urine Leukocyte Esterase Negative (NEG) Urine RBC 0/HPF (0-2) Urine WBC Occ/HPF (0-4) Urine Amorphous Sediment Present/HPF Urine Bacteria Few/HPF (0-FEW) Triglycerides Level 40mg/dL (0-150) Cholesterol Level 160mg/dL (0-200) LDL Cholesterol, Calculated 104mg/dL (0-100) VLDL Cholesterol, Calculated 8mg/dL (0-40) HDL Cholesterol 48mg/dL (40-60) Cholesterol/HDL Ratio 3.3 Laboratory Tests Test 02/29/16 04:45 Triglycerides Level 40mg/dL (0-150) Cholesterol Level 160mg/dL (0-200) LDL Cholesterol, Calculated 104mg/dL (0-100) VLDL Cholesterol, Calculated 8mg/dL (0-40) HDL Cholesterol 48mg/dL (40-60) Cholesterol/HDL Ratio 3.3 Medications Current Medications Ondansetron HCl 4 mg 4 mg PRN Q8HRS PRN IV NAUSEA/VOMITING; Start 02/28/16 at 07 :15; Stop 02/29/16 at 07:14; Status DC Sodium Chloride (Iv Sodium Chloride 0.9% 1000ml Bag) 1,000 ml @ 100 mls/hr Q10H IV Last administered on 02/28/16 07:41; Start 02/28/16 at 07:08; Stop 02/28 at 07:07; Status DC Acetaminophen (Tylenol) 650 mg PRN Q4HRS PRN PO FEVER; Start 02/28/16 at 07:15; Stop 02/29/16 at 07:14; Status DC Potassium Chloride (Klor-Con) 40 meq 1X ONCE PO Last administered on 02/28/16 07:40; Start 02/28/16 at 07:30; Stop 02/28/16 at 07:37; Status DC Sodium Chloride 3 ml 3 ml QSHIFT PRN IV AFTER MEDS AND BLOOD DRAWS; Start at 09:00 Sodium Chloride (Iv Sodium Chloride 0.9% 1000ml Bag) 1,000 ml @ 100 mls/hr Q10H IV Last administered on 02/29/16 09:08; Start 02/28/16 at 08:57 Aspirin (Ecotrin) 325 mg DAILYWBKFT PO Last administered on 02/29/16 09:08; Start 02/28/16 at 10:00 Simvastatin (Zocor) 40 mg QHS PO Last administered on 02/28/16 20:40; Start 02/28/16 at 21:00 Labetalol HCl (Normodyne) 10 mg PRN Q10MIN PRN IV HYPERTENSION, SEE COMMENTS; Start 02/28/16 at 09:00 Acetaminophen (Tylenol) 650 mg PRN Q6HRS PRN PO FEVER; Start 02/28/16 at 09:00 Acetaminophen (Tylenol) 650 mg PRN Q6HRS PRN [place] FEVER; Start 02/28/16 at 09:00 Ondansetron HCl (Zofran) 4 mg PRN Q6HRS PRN IV NAUSEA/VOMITING; Start 02/28/16 at 09:00 Enoxaparin Sodium (Lovenox 40mg Syringe) 40 mg Q24H SQ Last administered on 09:09; Start 02/28/16 at 10:00 Cyanocobalamin (Vitamin B-12) 1,000 mcg DAILY IM Last administered on 09:08; Start 02/28/16 at 10:00; Stop 03/01/16 at 09:59 Donepezil HCl (Aricept) 10 mg DAILY PO Last administered on 02/29/16 09:08; Start 02/28/16 at 12:00 Gadobutrol (Gadavist) 5 mmol 1X ONCE IV Last administered on 02/29/16 08:48; Start 02/29/16 at 08:45; Stop 02/29/16 at 08:46; Status DC Vitals/I & O Vital Sign - Last 24 Hours 02/28/16 02/28/16 02/28/16 02/29/16 19:00 20:10 23:00 03:00 Temp 99.0 97.9 97.9 99.0 97.9 97.9 Pulse 83 87 86 Resp 17 18 18 B/P 139/82 150/86 141/81 Pulse Ox 96 97 97 O2 Delivery Room Air Room Air Room Air Room Air 02/29/16 02/29/16 07:12 11:02 Temp 98.1 98.8 98.1 98.8 Pulse 92 89 Resp 16 16 B/P 159/72 131/70 Pulse Ox 97 98 O2 Delivery Room Air Room Air Intake and Output 02/28/16 02/28/16 02/29/16 15:00 23:00 07:00 Intake Total 240 ml 200 ml 150 ml Output Total 250 ml Balance 240 ml 200 ml -100 ml Images MRI brain: 1. There is no evidence of recent infarct. 2. There is a fairly large enhancing mass in the right lateral temporal region, apparently extra-axial in location. Findings are most likely due to a meningioma unless clinical suspicion for dural-based metastasis. Close interval followup imaging may be beneficial. Minimal T2 and FLAIR hyperintense signal abnormality of the supratentorial white matter is probably due to chronic microvascular ischemic disease in patient this age. Echocardiogram: The left ventricular systolic function is normal. The Ejection Fraction is 60-65%. There is normal LV segmental wall motion. Transmitral Doppler flow pattern is Grade I-abnormal relaxation pattern. Doppler and Color Flow revealed mild mitral regurgitation. There is no evidence of significant pericardial effusion DEMETRIA RENDON MD Feb 29, 2016 14:46
[2016-02-29 15:27] VITALS: BP 120/79
--- NOTE | 2016-02-29 15:27 | PDOC ---
PROGRESS NOTES Chief Complaint Chief Complaint right-sided weakness. essential tremor TIA symptoms dementia, possible Lewy-body discussed by Dr. Alaniz vit B12 deficiency History of Present Illness History of Present Illness not much change Vitals Vitals Vital Signs Date Time Temp Pulse Resp B/P Pulse Ox O2 Delivery O2 Flow Rate FiO2 02/29/16 11:02 98.8 89 16 131/70 98 Room Air 98.8 Physical Exam General: Alert, Cooperative, No acute distress, Other (poorly oriented) Abdomen: Normal bowel sounds, Soft Extremities: No cyanosis, No edema, Normal pulses Labs LABS Laboratory Tests Test 02/29/16 04:45 Triglycerides Level 40mg/dL (0-150) Cholesterol Level 160mg/dL (0-200) LDL Cholesterol, Calculated 104mg/dL (0-100) VLDL Cholesterol, Calculated 8mg/dL (0-40) HDL Cholesterol 48mg/dL (40-60) Cholesterol/HDL Ratio 3.3 Assessment and Plan Assessmemt and Plan eval for SNU Problems Medical Problems: (1) Hypokalemia Status: Acute (2) Right sided weakness Status: Acute (3) Unable to ambulate Status: Acute Problems: Comment Review of Relevant I have reviewed the following items nataliya (where applicable) has been applied. Labs Laboratory Tests Test 02/28/16 06:39 02/28/16 06:48 02/29/16 04:45 White Blood Count 4.8x10^3/uL (4.0-11.0) Red Blood Count 4.95x10^6/uL (3.50-5.40) Hemoglobin 13.5g/dL (12.0-15.5) Hematocrit 41.2% (36.0-47.0) Mean Corpuscular Volume 83fL (79-100) Mean Corpuscular Hemoglobin 27pg (25-35) Mean Corpuscular Hemoglobin Concent 33g/dL (31-37) Red Cell Distribution Width 15.2% (11.5-14.5) Platelet Count 281x10^3/uL (140-400) Neutrophils (%) (Auto) 78% (31-73) Lymphocytes (%) (Auto) 13% (24-48) Monocytes (%) (Auto) 8% (0-9) Eosinophils (%) (Auto) 1% (0-3) Basophils (%) (Auto) 1% (0-3) Neutrophils # (Auto) 3.8x10^3uL (1.8-7.7) Lymphocytes # (Auto) 0.6x10^3/uL (1.0-4.8) Monocytes # (Auto) 0.4x10^3/uL (0.0-1.1) Eosinophils # (Auto) 0.0x10^3/uL (0.0-0.7) Basophils # (Auto) 0.0x10^3/uL (0.0-0.2) Sodium Level 145mmol/L (136-145) Potassium Level 2.9mmol/L (3.5-5.1) Chloride Level 105mmol/L (98-107) Carbon Dioxide Level 30mmol/L (21-32) Anion Gap 10 (6-14) Blood Urea Nitrogen 9mg/dL (7-20) Creatinine 0.7mg/dL (0.6-1.0) Estimated GFR (Cockcroft-Gault) 96.0 Glucose Level 89mg/dL (70-99) Calcium Level 8.9mg/dL (8.5-10.1) Total Bilirubin 1.0mg/dL (0.2-1.0) Direct Bilirubin 0.2mg/dL (0.0-0.2) Aspartate Amino Transf (AST/SGOT) 23U/L (15-37) Alanine Aminotransferase (ALT/SGPT) 17U/L (14-59) Alkaline Phosphatase 49U/L (46-116) Total Protein 6.3g/dL (6.4-8.2) Albumin 3.4g/dL (3.4-5.0) Urine Collection Type U cath Urine Color Yellow Urine Clarity Cloudy Urine pH 7.5 Urine Specific [place] 1.015 Urine Protein Negativemg/dL (NEG-TRACE) Urine Glucose (UA) Negativemg/dL (NEG) Urine Ketones (Stick) 15mg/dL (NEG) Urine Blood Negative (NEG) Urine Nitrite Negative (NEG) Urine Bilirubin Negative (NEG) Urine Urobilinogen Dipstick 4.0mg/dL (0.2 mg/dL) Urine Leukocyte Esterase Negative (NEG) Urine RBC 0/HPF (0-2) Urine WBC Occ/HPF (0-4) Urine Amorphous Sediment Present/HPF Urine Bacteria Few/HPF (0-FEW) Triglycerides Level 40mg/dL (0-150) Cholesterol Level 160mg/dL (0-200) LDL Cholesterol, Calculated 104mg/dL (0-100) VLDL Cholesterol, Calculated 8mg/dL (0-40) HDL Cholesterol 48mg/dL (40-60) Cholesterol/HDL Ratio 3.3 Laboratory Tests Test 02/29/16 04:45 Triglycerides Level 40mg/dL (0-150) Cholesterol Level 160mg/dL (0-200) LDL Cholesterol, Calculated 104mg/dL (0-100) VLDL Cholesterol, Calculated 8mg/dL (0-40) HDL Cholesterol 48mg/dL (40-60) Cholesterol/HDL Ratio 3.3 Medications Current Medications Ondansetron HCl 4 mg 4 mg PRN Q8HRS PRN IV NAUSEA/VOMITING; Start 02/28/16 at 07 :15; Stop 02/29/16 at 07:14; Status DC Sodium Chloride (Iv Sodium Chloride 0.9% 1000ml Bag) 1,000 ml @ 100 mls/hr Q10H IV Last administered on 02/28/16 07:41; Start 02/28/16 at 07:08; Stop 02/28 at 07:07; Status DC Acetaminophen (Tylenol) 650 mg PRN Q4HRS PRN PO FEVER; Start 02/28/16 at 07:15; Stop 02/29/16 at 07:14; Status DC Potassium Chloride (Klor-Con) 40 meq 1X ONCE PO Last administered on 02/28/16 07:40; Start 02/28/16 at 07:30; Stop 02/28/16 at 07:37; Status DC Sodium Chloride 3 ml 3 ml QSHIFT PRN IV AFTER MEDS AND BLOOD DRAWS; Start at 09:00 Sodium Chloride (Iv Sodium Chloride 0.9% 1000ml Bag) 1,000 ml @ 100 mls/hr Q10H IV Last administered on 02/29/16 09:08; Start 02/28/16 at 08:57 Aspirin (Ecotrin) 325 mg DAILYWBKFT PO Last administered on 02/29/16 09:08; Start 02/28/16 at 10:00 Simvastatin (Zocor) 40 mg QHS PO Last administered on 02/28/16 20:40; Start 02/28/16 at 21:00 Labetalol HCl (Normodyne) 10 mg PRN Q10MIN PRN IV HYPERTENSION, SEE COMMENTS; Start 02/28/16 at 09:00 Acetaminophen (Tylenol) 650 mg PRN Q6HRS PRN PO FEVER; Start 02/28/16 at 09:00 Acetaminophen (Tylenol) 650 mg PRN Q6HRS PRN RI FEVER; Start 02/28/16 at 09:00 Ondansetron HCl (Zofran) 4 mg PRN Q6HRS PRN IV NAUSEA/VOMITING; Start 02/28/16 at 09:00 Enoxaparin Sodium (Lovenox 40mg Syringe) 40 mg Q24H SQ Last administered on 09:09; Start 02/28/16 at 10:00 Cyanocobalamin (Vitamin B-12) 1,000 mcg DAILY IM Last administered on 09:08; Start 02/28/16 at 10:00; Stop 03/01/16 at 09:59 Donepezil HCl (Aricept) 10 mg DAILY PO Last administered on 02/29/16 09:08; Start 02/28/16 at 12:00 Gadobutrol (Gadavist) 5 mmol 1X ONCE IV Last administered on 02/29/16 08:48; Start 02/29/16 at 08:45; Stop 02/29/16 at 08:46; Status DC Vitals/I & O Vital Sign - Last 24 Hours 02/28/16 02/28/16 02/28/16 02/29/16 19:00 20:10 23:00 03:00 Temp 99.0 97.9 97.9 99.0 97.9 97.9 Pulse 83 87 86 Resp 17 18 18 B/P 139/82 150/86 141/81 Pulse Ox 96 97 97 O2 Delivery Room Air Room Air Room Air Room Air 02/29/16 02/29/16 02/29/16 07:12 08:13 11:02 Temp 98.1 98.8 98.1 98.8 Pulse 92 89 Resp 16 16 B/P 159/72 131/70 Pulse Ox 97 98 O2 Delivery Room Air Room Air Room Air Intake and Output 02/28/16 02/28/16 02/29/16 15:00 23:00 07:00 Intake Total 240 ml 200 ml 150 ml Output Total 250 ml Balance 240 ml 200 ml -100 ml TREY VERAS MD Feb 29, 2016 15:27
[2016-02-29 19:15] VITALS: BP 137/80
[2016-02-29] MEDS: SIMVASTATIN 40 MG TABLET. PO SCH (19:57)
[2016-02-29 23:06] VITALS: BP 144/80
[2016-03-01] MEDS: IV NORMAL SALINE 1000ML BAG 1,000 ML IV SCH ×3 (02:47→20:57)
[2016-03-01 03:09] VITALS: BP 149/83
[2016-03-01 04:37] LABS: CALCIUM 8.4 mg/dL (8.5-10.1); CREATININE 0.6 mg/dL (0.6-1.0); GFR 114.4; POTASSIUM 3.6 mmol/L (3.5-5.1)
[2016-03-01 07:18] VITALS: BP 131/77
[2016-03-01] MEDS: DONEPEZIL HCL 10 MG TABLET. PO SCH (09:09)
[2016-03-01] MEDS: ASPIRIN ENTERIC COATED 325 MG TABLET.DR. PO SCH (09:09)
[2016-03-01] MEDS: CYANOCOBALAMIN (VITAMIN B-12) 1,000 MCG/ML VIAL IM SCH (09:09)
[2016-03-01] MEDS: ENOXAPARIN 40 MG/0.4 ML DISP.SYRIN. SQ SCH (09:10)
[2016-03-01 10:57] VITALS: BP 119/68
--- NOTE | 2016-03-01 12:14 | PDOC ---
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 Most likely this gait disorder represents her dementia. I do not believe the temporal meningioma is at fault. B12 deficiency Plan Transfer to [facility] Continue B-12 injections monthly Continue donepezil We discussed empiric trial of Parkinsonian medications but decided the risks outweigh the benefits I do not believe that she needs MRI studies of the cervical or lumbar spine Follow-up brain MRI in 3 months. Subjective No complaints Objective Vital Signs Date Time Temp Pulse Resp B/P Pulse Ox O2 Delivery O2 Flow Rate FiO2 03/01/16 10:57 97.9 79 17 119/68 100 Room Air 97.9 Intake and Output 03/01/16 07:00 Intake Total 960 ml Output Total 350 ml Balance 610 ml Intake Oral 960 ml Output Urine Total 350 ml # Voids 3 # Bowel Movements 1 PHYSICAL EXAM Alert. Oriented only to person. PERRL. EOMI. CN: no focal findings. Muscle tone: normal. Muscle strength: 4/5 DTR: 1+ Plantar reflex: flexor Gait: not examined in bed. Sensory exam: no abnormal findings. No cerebellar signs elicited. She has a coarse resting and postural tremor Review of Relevant I have reviewed the following items nataliya (where applicable) has been applied. Labs Laboratory Tests Test 02/29/16 04:45 03/01/16 03:20 Triglycerides Level 40mg/dL (0-150) Cholesterol Level 160mg/dL (0-200) LDL Cholesterol, Calculated 104mg/dL (0-100) VLDL Cholesterol, Calculated 8mg/dL (0-40) HDL Cholesterol 48mg/dL (40-60) Cholesterol/HDL Ratio 3.3 Sodium Level 140mmol/L (136-145) Potassium Level 3.6mmol/L (3.5-5.1) Chloride Level 108mmol/L (98-107) Carbon Dioxide Level 25mmol/L (21-32) Anion Gap 7 (6-14) Blood Urea Nitrogen 7mg/dL (7-20) Creatinine 0.6mg/dL (0.6-1.0) Estimated GFR (Cockcroft-Gault) 114.4 Glucose Level 89mg/dL (70-99) Calcium Level 8.4mg/dL (8.5-10.1) Laboratory Tests Test 03/01/16 03:20 Sodium Level 140mmol/L (136-145) Potassium Level 3.6mmol/L (3.5-5.1) Chloride Level 108mmol/L (98-107) Carbon Dioxide Level 25mmol/L (21-32) Anion Gap 7 (6-14) Blood Urea Nitrogen 7mg/dL (7-20) Creatinine 0.6mg/dL (0.6-1.0) Estimated GFR (Cockcroft-Gault) 114.4 Glucose Level 89mg/dL (70-99) Calcium Level 8.4mg/dL (8.5-10.1) Medications Current Medications Ondansetron HCl 4 mg 4 mg PRN Q8HRS PRN IV NAUSEA/VOMITING; Start 02/28/16 at 07 :15; Stop 02/29/16 at 07:14; Status DC Sodium Chloride (Iv Sodium Chloride 0.9% 1000ml Bag) 1,000 ml @ 100 mls/hr Q10H IV Last administered on 02/28/16 07:41; Start 02/28/16 at 07:08; Stop 02/28 at 07:07; Status DC Acetaminophen (Tylenol) 650 mg PRN Q4HRS PRN PO FEVER; Start 02/28/16 at 07:15; Stop 02/29/16 at 07:14; Status DC Potassium Chloride (Klor-Con) 40 meq 1X ONCE PO Last administered on 02/28/16 07:40; Start 02/28/16 at 07:30; Stop 02/28/16 at 07:37; Status DC Sodium Chloride 3 ml 3 ml QSHIFT PRN IV AFTER MEDS AND BLOOD DRAWS; Start at 09:00 Sodium Chloride (Iv Sodium Chloride 0.9% 1000ml Bag) 1,000 ml @ 100 mls/hr Q10H IV Last administered on 03/01/16 02:47; Start 02/28/16 at 08:57 Aspirin (Ecotrin) 325 mg DAILYWBKFT PO Last administered on 03/01/16 09:09; Start 02/28/16 at 10:00 Simvastatin (Zocor) 40 mg QHS PO Last administered on 02/29/16 19:57; Start at 21:00 Labetalol HCl (Normodyne) 10 mg PRN Q10MIN PRN IV HYPERTENSION, SEE COMMENTS; Start 02/28/16 at 09:00 Acetaminophen (Tylenol) 650 mg PRN Q6HRS PRN PO FEVER; Start 02/28/16 at 09:00 Acetaminophen (Tylenol) 650 mg PRN Q6HRS PRN IN FEVER; Start 02/28/16 at 09:00 Ondansetron HCl (Zofran) 4 mg PRN Q6HRS PRN IV NAUSEA/VOMITING; Start 02/28/16 at 09:00 Enoxaparin Sodium (Lovenox 40mg Syringe) 40 mg Q24H SQ Last administered on 09:10; Start 02/28/16 at 10:00 Cyanocobalamin (Vitamin B-12) 1,000 mcg DAILY IM Last administered on 09:09; Start 02/28/16 at 10:00; Stop 03/01/16 at 09:59; Status DC Donepezil HCl (Aricept) 10 mg DAILY PO Last administered on 03/01/16 09:09; Start 02/28/16 at 12:00 Gadobutrol (Gadavist) 5 mmol 1X ONCE IV Last administered on 02/29/16 08:48; Start 02/29/16 at 08:45; Stop 02/29/16 at 08:46; Status DC Vitals/I & O Vital Sign - Last 24 Hours 02/29/16 02/29/16 02/29/16 02/29/16 15:27 19:15 20:15 23:06 Temp 98.9 97.9 97.7 98.9 97.9 97.7 Pulse 88 82 82 Resp 18 20 20 B/P 120/79 137/80 144/80 Pulse Ox 100 99 99 O2 Delivery Room Air Room Air Room Air Room Air 03/01/16 03/01/16 03/01/16 03:09 07:18 10:57 Temp 98.6 98.1 97.9 98.6 98.1 97.9 Pulse 78 71 79 Resp 18 17 17 B/P 149/83 131/77 119/68 Pulse Ox 99 100 100 O2 Delivery Room Air Room Air Room Air Intake and Output 02/29/16 02/29/16 03/01/16 15:00 23:00 07:00 Intake Total 410 ml 550 ml Output Total 350 ml Balance 410 ml 550 ml -350 ml DEMETRIA RENDON MD Mar 01, 2016 12:14
[2016-03-01 14:46] VITALS: BP 135/70
--- NOTE | 2016-03-01 15:55 | PDOC ---
PROGRESS NOTES Chief Complaint Chief Complaint right-sided weakness. essential tremor TIA symptoms dementia, possible Lewy-body discussed by Dr. Alaniz vit B12 deficiency History of Present Illness History of Present Illness not much change about Vitals Vitals Vital Signs Date Time Temp Pulse Resp B/P Pulse Ox O2 Delivery O2 Flow Rate FiO2 03/01/16 14:46 97.9 83 17 135/70 100 Room Air 97.9 Physical Exam General: Alert, Cooperative, No acute distress, Other (poorly oriented) Heart: Regular rate, No murmurs Abdomen: Normal bowel sounds, Soft Extremities: No cyanosis, No edema, Normal pulses Labs LABS Laboratory Tests Test 03/01/16 03:20 Sodium Level 140mmol/L (136-145) Potassium Level 3.6mmol/L (3.5-5.1) Chloride Level 108mmol/L (98-107) Carbon Dioxide Level 25mmol/L (21-32) Anion Gap 7 (6-14) Blood Urea Nitrogen 7mg/dL (7-20) Creatinine 0.6mg/dL (0.6-1.0) Estimated GFR (Cockcroft-Gault) 114.4 Glucose Level 89mg/dL (70-99) Calcium Level 8.4mg/dL (8.5-10.1) Assessment and Plan Assessmemt and Plan plan to SNU tomorrow, [facility] Problems Medical Problems: (1) Hypokalemia Status: Acute (2) Right sided weakness Status: Acute (3) Unable to ambulate Status: Acute Problems: Comment Review of Relevant I have reviewed the following items nataliya (where applicable) has been applied. Labs Laboratory Tests Test 02/29/16 04:45 03/01/16 03:20 Triglycerides Level 40mg/dL (0-150) Cholesterol Level 160mg/dL (0-200) LDL Cholesterol, Calculated 104mg/dL (0-100) VLDL Cholesterol, Calculated 8mg/dL (0-40) HDL Cholesterol 48mg/dL (40-60) Cholesterol/HDL Ratio 3.3 Sodium Level 140mmol/L (136-145) Potassium Level 3.6mmol/L (3.5-5.1) Chloride Level 108mmol/L (98-107) Carbon Dioxide Level 25mmol/L (21-32) Anion Gap 7 (6-14) Blood Urea Nitrogen 7mg/dL (7-20) Creatinine 0.6mg/dL (0.6-1.0) Estimated GFR (Cockcroft-Gault) 114.4 Glucose Level 89mg/dL (70-99) Calcium Level 8.4mg/dL (8.5-10.1) Laboratory Tests Test 03/01/16 03:20 Sodium Level 140mmol/L (136-145) Potassium Level 3.6mmol/L (3.5-5.1) Chloride Level 108mmol/L (98-107) Carbon Dioxide Level 25mmol/L (21-32) Anion Gap 7 (6-14) Blood Urea Nitrogen 7mg/dL (7-20) Creatinine 0.6mg/dL (0.6-1.0) Estimated GFR (Cockcroft-Gault) 114.4 Glucose Level 89mg/dL (70-99) Calcium Level 8.4mg/dL (8.5-10.1) Medications Current Medications Ondansetron HCl 4 mg 4 mg PRN Q8HRS PRN IV NAUSEA/VOMITING; Start 02/28/16 at 07 :15; Stop 02/29/16 at 07:14; Status DC Sodium Chloride (Iv Sodium Chloride 0.9% 1000ml Bag) 1,000 ml @ 100 mls/hr Q10H IV Last administered on 02/28/16 07:41; Start 02/28/16 at 07:08; Stop 02/28 at 07:07; Status DC Acetaminophen (Tylenol) 650 mg PRN Q4HRS PRN PO FEVER; Start 02/28/16 at 07:15; Stop 02/29/16 at 07:14; Status DC Potassium Chloride (Klor-Con) 40 meq 1X ONCE PO Last administered on 02/28/16 07:40; Start 02/28/16 at 07:30; Stop 02/28/16 at 07:37; Status DC Sodium Chloride 3 ml 3 ml QSHIFT PRN IV AFTER MEDS AND BLOOD DRAWS; Start at 09:00 Sodium Chloride (Iv Sodium Chloride 0.9% 1000ml Bag) 1,000 ml @ 100 mls/hr Q10H IV Last administered on 03/01/16 12:41; Start 02/28/16 at 08:57 Aspirin (Ecotrin) 325 mg DAILYWBKFT PO Last administered on 03/01/16 09:09; Start 02/28/16 at 10:00 Simvastatin (Zocor) 40 mg QHS PO Last administered on 02/29/16 19:57; Start at 21:00 Labetalol HCl (Normodyne) 10 mg PRN Q10MIN PRN IV HYPERTENSION, SEE COMMENTS; Start 02/28/16 at 09:00 Acetaminophen (Tylenol) 650 mg PRN Q6HRS PRN PO FEVER; Start 02/28/16 at 09:00 Acetaminophen (Tylenol) 650 mg PRN Q6HRS PRN [place] FEVER; Start 02/28/16 at 09:00 Ondansetron HCl (Zofran) 4 mg PRN Q6HRS PRN IV NAUSEA/VOMITING; Start 02/28/16 at 09:00 Enoxaparin Sodium (Lovenox 40mg Syringe) 40 mg Q24H SQ Last administered on 09:10; Start 02/28/16 at 10:00 Cyanocobalamin (Vitamin B-12) 1,000 mcg DAILY IM Last administered on 09:09; Start 02/28/16 at 10:00; Stop 03/01/16 at 09:59; Status DC Donepezil HCl (Aricept) 10 mg DAILY PO Last administered on 03/01/16 09:09; Start 02/28/16 at 12:00 Gadobutrol (Gadavist) 5 mmol 1X ONCE IV Last administered on 02/29/16 08:48; Start 02/29/16 at 08:45; Stop 02/29/16 at 08:46; Status DC Vitals/I & O Vital Sign - Last 24 Hours 02/29/16 02/29/16 02/29/16 03/01/16 19:15 20:15 23:06 03:09 Temp 97.9 97.7 98.6 97.9 97.7 98.6 Pulse 82 82 78 Resp 20 20 18 B/P 137/80 144/80 149/83 Pulse Ox 99 99 99 O2 Delivery Room Air Room Air Room Air Room Air 03/01/16 03/01/16 03/01/16 03/01/16 07:18 08:17 10:57 14:46 Temp 98.1 97.9 97.9 98.1 97.9 97.9 Pulse 71 79 83 Resp B/P 131/77 119/68 135/70 Pulse Ox 100 100 100 O2 Delivery Room Air Room Air Room Air Room Air Intake and Output 02/29/16 02/29/16 03/01/16 15:00 23:00 07:00 Intake Total 410 ml 550 ml Output Total 350 ml Balance 410 ml 550 ml -350 ml TREY VERAS MD Mar 01, 2016 15:55
[2016-03-01 19:31] VITALS: BP 129/75
[2016-03-01] MEDS: SIMVASTATIN 40 MG TABLET. PO SCH (21:49)
[2016-03-01 23:05] VITALS: BP 141/72
[2016-03-02 03:33] VITALS: BP 152/79
[2016-03-02 07:05] VITALS: BP 148/81
[2016-03-02] MEDS: ASPIRIN ENTERIC COATED 325 MG TABLET.DR. PO SCH (08:57)
[2016-03-02] MEDS: IV NORMAL SALINE 1000ML BAG 1,000 ML IV SCH (08:57)
[2016-03-02] MEDS: DONEPEZIL HCL 10 MG TABLET. PO SCH (08:57)
[2016-03-02] MEDS: ENOXAPARIN 40 MG/0.4 ML DISP.SYRIN. SQ SCH (08:58)
== END 2016-03-02 12:21 | DRG 884 ==
LOC: ER 05:27 → 6 SOUTH 06:27
PROVIDERS: ADMIT Internal Medicine; ATTEND Internal Medicine
DX: F01.51 Vascular dementia, unspecified severity, with behavioral disturbance (principal); F02.81 Dementia in other diseases classified elsewhere, unspecified severity, with behavioral disturbance; G45.9 Transient cerebral ischemic attack, unspecified; G20 Parkinson's disease; G30.9 Alzheimer's disease, unspecified; E87.6 Hypokalemia; E53.8 Deficiency of other specified B group vitamins; I10 Essential (primary) hypertension; Z82.3 Family history of stroke; G31.83 Neurocognitive disorder with Lewy bodies; D32.9 Benign neoplasm of meninges, unspecified; R26.9 Unspecified abnormalities of gait and mobility
CPT/HCPCS: 36415; 70450; 70553; 80048; 80061; 80076; 81001; 85027; 93005; 93306; 93880; J1650; J3420; J7030; 92610; 97110; 97116; 97535; 99285-25; A9585